=== PATIENT | male | born 1975 | race Caucasian/White ===

== ENCOUNTER → 2019-04-02 | Outpatient (CLI) | payer OTHER ==
--- NOTE | 2019-04-02 13:46 | RADIOLOGY REPORT (SQ) ---
EXAM DESCRIPTION: T SPINE AP/LAT COMPLETED DATE/TIME: 04/02/2019 12:41 pm REASON FOR STUDY: PAIN IN THORACIC CPINE M54.2 CERVICALGIA M54.6 PAIN IN THORACIC SPINE COMPARISON: None. NUMBER OF VIEWS: Two views. TECHNIQUE: AP and lateral radiographic images acquired of the thoracic spine. LIMITATIONS: None. FINDINGS: MINERALIZATION: Normal. ALIGNMENT: Normal. No scoliosis. VERTEBRAE: No fracture or bone lesion. Maintained height, normal segmentation. DISCS: Mild disc space narrowing mid thoracic spine with mildly prominent anterior osteophytes. Mil d degenerative changes at C3-C4. HARDWARE: None in the spine. MEDIASTINUM AND SOFT TISSUES: Normal heart size and aortic contour. No soft tissue abnormality. VISUALIZED LUNG DANG: Clear. OTHER: No other significant finding. IMPRESSION: 1. Mild degenerative changes midthoracic spine. 2. No acute osseous findings. TECHNICAL DOCUMENTATION: JOB ID: [id number] [email or web address]- All Rights Reserved Reading location - IP/workstation name: [email or web address]
--- NOTE | 2019-04-02 13:51 | RADIOLOGY REPORT (SQ) ---
EXAM DESCRIPTION: CERV SP 4 OR 5 VIEWS COMPLETED DATE/TIME: 04/02/2019 12:41 pm REASON FOR STUDY: CERVICALGIA M54.2 CERVICALGIA M54.6 PAIN IN THORACIC SPINE COMPARISON: None. NUMBER OF VIEWS: Five views. TECHNIQUE: AP, lateral, obliques and odontoid radiographic images acquired of the cervical spine. LIMITATIONS: None. FINDINGS: MINERALIZATION: Normal. ALIGNMENT: Anatomic. VERTEBRAE: Vertebral bodies of normal height. DISCS: Mild disc space narrowing at C3-C4 and C4-C 5. Mildly prominent anterior osteophytes C3, C4 and C5. FORAMINA: Moderate foraminal narrowing at C3-C4 and mild narrowing at C4-C 5 on the right. On the l eft, mild foraminal narrowing at C3-C4. LATERAL AND POSTERIOR ELEMENTS: Facets, lateral masses and spinous processes without significant find ings. HARDWARE: None in the spine. SOFT TISSUES: No masses or calcifications. Lung apices clear. OTHER: No other significant finding. IMPRESSION: 1. Cervical spondylosis and mild disc disease at C3-C4 and C4-C5. 2. Mild to moderate foraminal narrowing on the right at C3-C4 and C4-C5, and on the left at C3-C4. TECHNICAL DOCUMENTATION: JOB ID: [id number] [employer]- All Rights Reserved Reading location - IP/workstation name: [email or web address]
== END ==
LOC: RAD 12:01
PROVIDERS: ATTEND Physician Assistant
DX: M54.2 Cervicalgia (principal); M54.6 Pain in thoracic spine; M50.321 Other cervical disc degeneration at C4-C5 level; M48.02 Spinal stenosis, cervical region
CPT/HCPCS: 72050; 72070